=== PATIENT | male | born 1950 | race Two or more races ===

== ENCOUNTER 2017-02-22 05:38 | Day surgery (SDC) | payer OTHER ==
[2017-02-22] VITALS (9 sets, daily range): BP systolic 95–133; BP diastolic 57–83
[~2017-02-22] VITALS: Ht 172.7 cm; Wt 88.5 kg
[~2017-02-22 05:38] MED LIST: GLUCOSAMINE &1 EAC2 PO; LYRICA75 M1 ORAL; TERAZOSIN HCL5 MG PO
[2017-02-22] MEDS ORDERED: oxyCONTIN 20mg tab ORAL ONE (06:00)
[2017-02-22] MEDS ORDERED: ceFAZolin 1gm in D5W 55ml IVP ONE (06:00)
[2017-02-22] MEDS ORDERED: celeBREX 200mg Cap **SURGERY PATIENTS ONLY ORAL ONE (06:00)
[2017-02-22] MEDS ORDERED: Morphine Sulfate PF 10 ML ONE (07:13)
[2017-02-22] MEDS ORDERED: Ketorolac 30mg Inj ONE (07:14)
[2017-02-22] MEDS ORDERED: Kenalog-40 1ml Vial ONE (07:14)
[2017-02-22] MEDS ORDERED: Bupivacaine w/Epi 0.25% 30ml Vial INJ ONE (07:14)
[2017-02-22] MEDS ORDERED: Lidocaine 1% 10mg/ml/Epi 0.005mg/ml 30ml vial INJ ONE (07:14)
[2017-02-22] MEDS ORDERED: Bupivacaine 0.25% Inj 30ml INJ ONE (07:14)
--- NOTE | 2017-02-22 07:21 | Operative Note - PDOC ---
Operative Note Operative Note Pre-op Diagnosis: right knee internal derangment Procedure: right knee diagnostic arthroscopy Post-op Diagnosis: same as pre-op plus Operative Findings: consistent w/pre-op dx studies Anesthesia: MAC Specimen: none Complications: none Condition: stable Estimated Blood Loss: none Implant(s) used?: No KASSIE CAMILO February 22, 2017 07:21
--- NOTE | 2017-02-22 07:21 | Pre-Procedure Note/Attestation ---
Pre-Procedure Note/Attestation Complete Prior to Procedure Planned Procedure: right Procedure Narrative: knee arthroscopy, possible menisectomy, possible synovectomy Indications for Procedure Pre-Operative Diagnosis: right knee internal derangment Attestation I attest that I discussed the nature of the procedure; its benefits; risks and complications; and alternatives (and the risks and benefits of such alternatives ), prior to the procedure, with the patient (or the patient's legal retail representative). I attest that, if there was a reasonable possibility of needing a blood transfusion, the patient (or the patient's legal retail representative) was given the [facility] standardized written summary, pursuant to the [place] Blood Safety Act ([place] Health and Safety Code # 1645, as amended). I attest that I re-evaluated the patient just prior to the surgery and that there has been no change in the patient's H&P, except as documented below: KASSIE CAMILO February 22, 2017 07:21
[2017-02-22] MEDS ORDERED: Duramorph PF 10mg/10ml amp IV ONE (07:30)
[2017-02-22] MEDS ORDERED: Midazolam 2mg/2ml Inj ONE (07:45)
[2017-02-22] MEDS ORDERED: Metoclopramide 10mg/2ml Inj ONE (07:45)
[2017-02-22] MEDS ORDERED: LR 1000ml ONE (07:45)
[2017-02-22] MEDS ORDERED: fentaNYL 100 mcg/2 mL IV ONE (07:45)
--- NOTE | 2017-02-22 08:28 | Immediate Post-Op Evaluation ---
Immediate Post-Op Evalulation Immediate Post-Op Evalulation Procedure: right knee scope Date of Evaluation: February 22, 2017 Time of Evaluation: 08:15 IV Fluids: 500 Blood Pressure Systolic: 99 Blood Pressure Diastolic: 50 Pulse Rate: 70 Respiratory Rate: 12 O2 Sat by Pulse Oximetry: 96 Temperature (Fahrenheit): 97.8 Nausea: No Vomiting: No Complications none Patient Status: awake, reacts, patent Hydration Status: adequate Drug: ancef Given Within 1 Hr of Incision: Yes Time Given: 07:45 ELIER DAWKINS CRNA February 22, 2017 08:28
--- NOTE | 2017-02-22 08:30 | Anethesia Preoperative Eval ---
Anesthesia Pre-op PMH/ROS General Date of Evaluation: February 22, 2017 Time of Evaluation: 07:44 Anesthesiologist: alec ASA Score: ASA 2 Mallampati Score Class I : Soft palate, uvula, fauces, pillars visible Class II: Soft palate, uvula, fauces visible Class III: Soft palate, base of uvula visible Class IV: Only hard plate visible Mallampati Classification: Class III Surgeon: suhas Diagnosis: right knee pain Surgical Procedure: right knee arthroscopy Anesthesia History: none Family History: no anesthesia problems Allergies: Coded Allergies: No Known Allergies (Unverified , 02/21/17) Medications: see eMAR Past Medical History Cardiovascular: Denies: CAD, HTN, [place], arrhythmia, other, valve dz Pulmonary: Denies: COPD, ALIDA, asthma, other Gastrointestinal/Genitourinary: Denies: CRI, ESRD, GERD, other Neurologic/Psychiatric: Denies: CVA, TIA, dementia, depression/anxiety, other Endocrine: Denies: DM, hypothyroidism, other, steroids HEENT: Denies: TABLE MOUNTAIN (L), [place] (R), cataract (L), cataract (R), glaucoma, other Hematology/Immune: Denies: DVT, anemia, bleeding disorder, other Musculoskeletal/Integumentary: Reports: DJD PSxH Narrative: left knee surgery Anesthesia Pre-op Phys. Exam Physician Exam Last Vital Signs Date Time Temp Pulse Resp B/P Pulse Ox O2 Delivery O2 Flow Rate FiO2 02/22/17 08:17 73 14 97/57 96 Simple Mask 8.0 02/22/17 08:12 97.3 Constitutional: NAD Neurologic: CN 2-12 intact Cardiovascular: RRR Respiratory: CTA Gastrointestinal: S/NT/ND Airway Exam Mallampati Classification * front tooth chipped; 3 MO: full Neck: thick ROM: full Dentures: no lower, no upper Anesthesia Pre-op A/P Labs normal Studies Pre-op Studies: EKG - sr Risk Assessment & Plan Plan: general Status Change Before Surgery: No Pre-Antibiotics Drug: ancef Given Within 1 Hr of Incision: Yes Time Given: 07:50 ELIER DAWKINS CRNA February 22, 2017 08:30
--- NOTE | 2017-02-22 08:36 | 48 Hour Post Anesthesia Eval ---
Post Anesthesia Evaluation Procedure: right knee scope Date of Evaluation: February 22, 2017 Time of Evaluation: 08:35 Blood Pressure Systolic: 99 0: 70 Pulse Rate: 79 Respiratory Rate: 14 O2 Sat by Pulse Oximetry: 98 Nausea: No Vomiting: No Hydration Status: adequate Cardiopulmonary Status: stable Mental Status/LOC: patient returned to baseline Post-Anesthesia Complications: none Follow-up care needed: N/A ELIER DAWKINS CRNA February 22, 2017 08:36
[2017-02-22] MEDS ORDERED: Metoclopramide 10mg/2ml Inj IVP PRN (08:45)
[2017-02-22] MEDS ORDERED: fentaNYL 100 mcg/2 mL IV PRN (08:45)
--- NOTE | 2017-02-22 14:02 | Operative Note - Dictated ---
DATE OF OPERATION: 02/22/2017 OPERATIVE PROCEDURE POSTOPERATIVE DIAGNOSIS: Right knee internal derangement and possible medial meniscus tear. POSTOPERATIVE DIAGNOSES: 1. medial meniscus tear. 2. Hypertrophic synovial tissue intercondylar medial compartment of the knee. PROCEDURE: 1. Left knee partial medial meniscectomy. 2. Synovectomy of medial and lateral patellofemoral compartment. SURGEON: Carlos Alberto Gardiner M.D. ANESTHESIA: Local. INDICATION FOR PROCEDURE: The patient is a pleasant 66-year-old gentleman with progressive left knee pain. He had MRI, which showed a tear of the posterior horn medial meniscus given the continued symptoms elected left knee arthroscopic medial meniscectomy. Risks, limitations and complication of procedure with detail including possible continued pain, need for future surgery, risk of anesthesia, medical complications. DESCRIPTION OF PROCEDURE: An informed consent was obtained. The patient was taken to the operative room and the patient was placed under monitored anesthesia control. Tourniquet was applied to the right proximal thigh. The right leg was prepped and draped in sterile manner. Time-out was performed and Ancef was administered. A 0.25% Marcaine plain injected into the knee and the portal sites were injected 1% lidocaine with epinephrine. The Esmarch used in the extremity. Inferolateral stab incision was then made and trocar was introduced into the knee joint. There was significant resistance into lateral compartment of the knee. Once the patellofemoral compartment was entered. There was hypertrophic synovial tissue. The medial compartment entered and there is hypertrophic synovial tissue making visualization difficult. A medial working portal was established. Left inguinal strain of the medial compartment and extending intercondylar notch. Once that was done, visualization at the entrance at the medial compartment was done and there was a tear of the posterior horn medial meniscus. Partial meniscectomy was performed down to a stable meniscal tissue. There is grade 2 chondral damage in the medial compartment. The intercondylar notch was entered. The ligamentum mucosa was debrided, ACL was probed and noted to be intact. Lateral compartment was entered and there is no evidence of meniscal chondral damage. At this point, he was repositioned in the subacromial space and the synovectomy was completed. At this point, the instruments removed. Portal sites were then closed with 3-0 Monocryl sutures. Steri-Strips and a sterile dressing were applied. The patient was awoken and taken to recovery room with stable vital signs. ESTIMATED BLOOD LOSS: None. COMPLICATIONS: None. SPECIMENS: None. IMPLANTS: None. Carlos Alberto Gardiner M.D. DR: Nimesh JOB#: [id number] CC: CARON
[2017-02-22] MEDS ORDERED: D5 1/2NS 1,000 ML IV SCH (15:01)
[2017-02-22] MEDS ORDERED: HYDROmorphone 1mg/ml Carpuject SUBQ PRN (15:01)
[2017-02-22] MEDS ORDERED: Norco 5mg/325mg tab ORAL PRN (15:01)
[2017-02-22] MEDS ORDERED: Tylenol #3 tab (300mg/30mg) ORAL PRN (15:01)
== END 2017-02-22 11:00 | disposition home or self-care (01) ==
LOC: SUR 05:38
DX: M23.221 Derangement of posterior horn of medial meniscus due to old tear or injury, right knee (principal); M67.261 Synovial hypertrophy, not elsewhere classified, right lower leg; N40.0 Benign prostatic hyperplasia without lower urinary tract symptoms; M19.90 Unspecified osteoarthritis, unspecified site
CPT/HCPCS: 29881; 97161; G8978; G8979; G8980; J0690; J1885; J2250; J2274; J2405; J2765; J3010; J3301; J3490; J7120; 94003; 94150